=== PATIENT | female | born 1985 | race African-American/Black ===

== ENCOUNTER 2017-09-09 15:13 | Observation (INO) | payer MEDICAID, SELFPAY ==
[2017-09-09] VITALS (11 sets, daily range): BP systolic 152–236; BP diastolic 109–166; PULSE 71–105; RESP 12–27; TEMP 36.1–37; O2SAT 96–100; BMI 37.3; BMI 37.4; BMI 37.7
--- NOTE | 2017-09-09 15:25 | EKG12_ITS ---
Test Reason : N/V Blood Pressure : / mmHG Vent. Rate : 104 BPM Atrial Rate : 104 BPM P-R Int : 158 ms QRS Dur : 104 ms QT Int : 372 ms P-R-T Axes : 056 -60 080 degrees QTc Int : 489 ms Sinus tachycardia Left axis deviation Abnormal ECG Confirmed by THOMAS DILLARD, NAILA ([id number]), supervising film or videotape editor JASWINDER VINCENT ([id number]) on 09/11/2017 1:10:51 PM Referred By: LINDY Confirmed By:NAILA GUZMAN MD
--- NOTE | 2017-09-09 15:30 | RAD_ITS ---
STUDY: X-RAY CHEST REASON FOR EXAM: Female, 32 years old. 3 day history of nausea and vomiting and shortness of breath. TECHNIQUE: Single AP portable view of the chest. COMPARISON: Comparison is made with prior study dated May 18, 2015. FINDINGS: EKG electrodes are seen. Elevation of the right hemidiaphragm. Scattered calcified granulomas. There is no demonstrated pleural abnormality. There is moderate cardiac enlargement. Normal mediastinum and epifanio. Normal visualized pulmonary arteries. Normal visualized aortic arch and descending thoracic aorta. Normal visualized thoracic spine. Normal visualized ribs, clavicles, and shoulders. There is no demonstrated abnormality of the visualized soft tissue structures of the upper abdomen. RAD/Chest 1 View (Portable) IMPRESSION: Moderate cardiomegaly. Electronically Signed: Gerald Yin MD at 15:47 EDT Tel [phone], Service support ,
--- NOTE | 2017-09-09 15:31 | ED.DCSUM_ITS ---
- ER Visit Summary Date of Service: 09/09/17 Chief Complaint: Nausea, vomiting, shortness of breath History of Present Illness: The patient is a 32 F who reports nausea, vomiting, shortness of breath for the past 3 days. She states she had diarrhea on the first day of the illness only. She continues to have the nausea and vomiting. She is not sure if she may have gotten food poisoning. She denies pain. She does have a history of hypertension and diabetes and states she has not been checking her blood sugars. She has been able to keep her medication down. She states her blood pressure is poorly controlled on a regular basis. She states her systolic blood pressure only once 200 or higher. Physical Examination: Vital signs in triage include a blood pressure of 236/166 , temperature 97, heart rate 92, respiratory rate 16, pulse ox 99% on room air. Patient sitting upright in bed no acute distress. She is alert and talkative. Head and neck examination unremarkable. Heart is regular rate and rhythm. Lung sounds are clear but she does appear tachypneic. Abdomen is soft nontender. Hypoactive bowel sounds are noted. Neuro exam reveals no focal deficits. Test Results: EKG is sinus at 104 with no sign of acute ischemia. Portable chest x-ray shows moderate cardiomegaly. CBC was a white count 13.1 with unremarkable differential. Hemoglobin is 11.8. Chemistry studies reveal glucose of 343 and a sodium of 132. Her creatinine is 1.12. LFTs and lipase normal. Patency test is negative. Serum acetone is negative. Urinalysis shows 500 protein 1000 and glucose. She does not have ketones in her urine. Emergency Department Course and Treatment: Patient was given Zofran and gentle IV fluids. Repeat blood pressure is 218/155 with a heart rate of 100. She is given 10 mg of IV labetalol and repeat blood pressure is currently 199/142 with a heart rate of 83. She will be admitted for further treatment and evaluation. Treatment Plan: [] Disposition: Admit Impression: Hypertensive urgency This note was generated with [employer] dictation software. It may contain incorrect words, spelling, and punctuation that were not noted in review of the chart prior to signing ED Disposition - Plan for ED Patient: Chief Complaint: Nausea/Vomiting
--- NOTE | 2017-09-09 15:32 | NURSING ---
NO OLD EKGS
[2017-09-09 15:45] LABS: Bedside Glucose 374 mg/dL (70-110)
[2017-09-09] MEDS: Ondansetron 4 MG/2 ML Vial IV (15:50)
[2017-09-09] MEDS: 0.9% Normal Saline 1,000 ML 150 ML IV (15:50)
[2017-09-09 15:54] LABS: Mucous, Urine 0 SEEN /hpf (<or=2+); Red Blood Cells-Urine 0 SEEN /hpf (0-5)
[2017-09-09 16:11] LABS: Absolute Lymphocyte Count 2.83 X10^3/ul (0.83-4.51); Absolute Neutrophil Count 9.1 X10^3/uL (2.0-7.7); Basophil# 0.03 X10^3/uL; Basophil% 0.2 % (0-1); Eosinophil# 0.04 X10^3/uL; Eosinophils% 0.3 % (0-5); Hemoglobin 11.8 g/dl (12.0-15.0); Lymphocyte # 2.83 X10^3/ul (4.0); Lymphocyte % 21.6 % (19-41); Mean Corp Hgb Conc 32.8 g/gl (32-36); Mean Corpuscular Hgb 26.3 pg (27.0-32.0); Mean Corpuscular Volume 80.4 fL (81-99); Monocyte# 1.03 X10^3/uL; Monocyte% 7.9 % (0-10); Neutrophil % 69.6 % (47-70); Platelet Count 309 K/mm3 (150-450); RBC Distribution Width CV 15.5 % (11.6-14.6); RBC Distribution Width SD 44.6 fl (35.1-43.9); Red Blood Count 4.48 M/mm3 (4.2-5.4); White Blood Count 13.1 K/mm3 (4.4-11.0)
[2017-09-09 16:15] LABS: POSITIVE COUNT NO; POSITIVE DIFFERENTIAL NO; POSITIVE MORPHOLOGY NO
[2017-09-09 16:23] LABS: AST(SGOT) 24 U/L (15-37); Alanine Aminotransfer ALT/SGPT 43 U/L (13-56); Albumin, Serum 2.8 g/dL (3.2-5.0); Alkaline Phosphatase 96 U/L (45-117); Anion Gap 10 (5-15); BUN 18 mg/dL (7-18); BUN/Creat Ratio 16.1 RATIO (10-20); Bilirubin, Direct 0.21 mg/dL (0.00-0.30); Calcium,Total 8.3 mg/dL (8.5-10.1); Chloride 100 mmol/L (98-107); Creatinine, Serum 1.12 mg/dL (0.55-1.02); EST Glomerular Filtration Rate 60 mL/min (>60); Est Glom Filt Rate - Afr Amer 73 mL/min (>60); Estimated Creatinine Clearance 62.27 ml/min; Globulin 4.1 g/dL (2.2-4.2); Glucose 343 mg/dL (74-106); Lipase 103 U/L (73-393); Potassium 4.5 mmol/L (3.5-5.1); Protein, Total 6.9 g/dL (6.4-8.2); Sodium Level 132 mmol/L (136-145)
[2017-09-09 16:34] LABS: Pregnancy, Serum, hCG Quali. NEGATIVE Negative (0-9 Nonpreg)
[2017-09-09 16:51] LABS: Color, Urine Yellow (Yellow); Glucose, Dipstick 1000 mg/dl (Normal); Ketone-Dipstick Negative (Negative); Leukocyte Esterase-Dipstick Negative /ul (Negative); Nitrite-Dipstick Negative (Negative); Occult Blood-Urine 10 /ul (Negative); Protein-Dipstick 500 mg/dl (Negative); Urine Bilirubin Dipstick Negative (Negative); Urine Clarity Clear (Clear); Urine Urobilinogen Normal (Normal)
[2017-09-09 17:29] LABS: Fine Granular Cast- Urine 0-5 SEEN /lpf (0-5); Hyaline Cast 5-10 SEEN /lpf (0-5)
[2017-09-09 17:30] LABS: Bacteria 1+ /hpf (None Seen); Squamous Epithelial Cells - UA 5-10 SEEN /hpf (5-10); White Blood Cells 0-5 SEEN /hpf (0-5)
[2017-09-09 17:36] LABS: Bedside Glucose 272 mg/dL (70-110)
--- NOTE | 2017-09-09 17:59 | NURSING ---
DR QUINTANILLA IN ER
--- NOTE | 2017-09-09 18:01 | NURSING ---
PCU OBS UNCONTROLLED HYPERTENSION DWIGHT
--- NOTE | 2017-09-09 18:11 | NURSING ---
Ryan notified patient may transfer to PCU.
[2017-09-09] MEDS: Insulin Lispro 100 UNIT/ML INSULN.PEN SC ×2 (18:54→21:12)
[2017-09-09 18:56] LABS: Bedside Glucose 296 mg/dL (70-110)
[2017-09-09] MEDS: cloNIDine HCl 0.2 MG Tablet PO (18:56)
[2017-09-09] MEDS: Lisinopril 20 MG Tablet PO (18:56)
[2017-09-09] MEDS: Furosemide 40 MG Tablet PO (18:56)
--- NOTE | 2017-09-09 20:48 | PCM.HP.STD ---
Problem List (1) Nausea and vomiting Status: Acute Qualifiers: Vomiting Intractability: unspecified (2) Shortness of breath Status: Acute History of Present Illness Date of Admission: 09/09/17 Chief Complaint: Shortness of breath, nausea and vomiting The patient is a 32 year old F seen in the emergency room at [facility] with chief complaint of nausea and vomiting and shortness of breath ?3 days. Patient has a history of hypertension and type 2 diabetes, she told this examiner that she has not been taking her diabetic medications as directed, she also does not have a family physician and was given a prescription for blood pressure medications and diabetic medications from [facility] emergency room approximately a month ago. Patient denies any chest pains, she denies any sputum production, she denies any fever, or chills. Evaluation in the ER revealed her blood pressure to be highly elevated at 236/166, labs were remarkable for a creatinine of 1.12, glucose of 343, and white blood cell count at 13.1. Patient's pulse ox was 99% on room air, patient's chest x-ray showed cardiomegaly. Patient was given labetalol in the emergency room with some decrease in her blood pressure, hospitalist service was called for admission. Patient will be admitted for hypertensive urgency, due to her cardiomegaly on her chest x-ray, I will have an echocardiogram performed tomorrow. I do not feel the patient is compliant with her medications. She told this examiner that she has had a history of preeclampsia with her first but no history of it with her second . 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 SLEEVE SEWER history Lives: Spouse/ Significant Other Smoking Status: Former smoker Tobacco Use: Cigarettes Alcohol: Occasional Drugs: None - *Family History Maternal History Items: Diabetes, Hypertension Paternal History Items: Diabetes, Hypertension Review of Systems Constitutional: Denies: Anorexia, Chills, Fever, Night Sweats, Malaise, Weakness, Weight Change, Fatigue Eyes: Denies: Blurred vision, Cataracts, Conjunctivae Inflammation, Double vision, Drainage HEENT: Denies: Difficulty Swallowing, Dysphasia, Ear Pain, Eye Pain, Head Aches, Hearing Changes, Nasal bleeding, Nasal Congestion, Post Nasal Drip Cardiovascular: Denies: Chest Pain, Claudication, Chest Pressure, Chest Tightness, Edema, Heaviness, Orthopnea, Palpitations, Paroxysmal Noc. Dyspnea, Syncope Respiratory: Reports: Shortness of Breath, Shortness of breath upon exertion. Denies: Cough, Hemoptysis, Pleuritic Pain, Shortness of breath at rest, Sputum production, Wheezing Gastrointestinal: Denies: Abdominal Pain, Constipation, Diarrhea, Hematemesis, Hematochezia, Nausea, Melena, Vomiting Genitourinary: Denies: Dysuria, Frequency, Hematuria, Hesitancy, Urgency Gynecological: Denies: Breast symptoms Musculoskeletal: Denies: Foot Pain, Hand Pain, Joint Pain, Joint stiffness, Joint swelling, Joint Tenderness, Leg Pain Skin: Denies: Dryness, Jaundice, Pruritis, Rash Neurological: Denies: Blurred vision, Double vision, Slurred speech, Difficulty swallowing, Focal weakness, Headaches, Incoordination, Numbness, Tingling Psychiatric: Denies: Anxiety, Depression, Homicidal Ideations, Suicidal Ideations Endocrine: Denies: Change in Body Habitus, Heat/ Cold Intolerance, Polydipsia, Polyuria Hematologic/ Lymphatic: Denies: Adenopathy, Anemia, Easy Bruising, Easy Bleeding, Petechiae, Purpura VTE Information - Inpt Only VTE Present on Admission: No VTE Mechan Device Prophylaxis: None VTE Pharm Prophylaxis ordered?: No Reason prophylaxis not ordered:: Procedure Not Indicated - low risk for VTE Patient Problems: Active and Suspected Problems Nausea and vomiting (Acute) Shortness of breath (Acute) - Physical Exam General: Alert, Oriented x3, Cooperative, No apparent distress, Well developed, Well nourished HEENT: Atraumatic, PERRLA, EOMI, Normocephalic Oral: Moist Mucosa Neck: Supple, No JVD, Negative Carotid Bruits, No Nuchal Rigidity, Trachea Midline, Thyroid Normal Size and Texture Lungs: Clear to auscultation, Normal air movement, No rhonchi, No wheeze, No rales Cardiovascular: Regular rate, Regular Rhythm, Normal S1, Normal S2, No murmurs, No Ectopic Activity, PMI Normal, No rub noted, No Gallop Abdomen: Bowel Sounds Present, Soft, Non Tender, Non-Distended, No hernias noted Extremities: No clubbing, No cyanosis, No edema, Capillary Refill Less than 3 Seconds Skin: No rashes, No breakdown Musculoskeletal: No Tenderness to Palpation of Joints or Extremities Neurological: Cranial nerves II-XII grossly intact, Neuro grossly intact, Muscle tone normal, Sensory exam intact to light touch and pain Psych/Mental Status: Normal Affect, Appropriate, Alert and oriented to time, place, person, mood and affect Vital Signs Temp Pulse Resp BP Pulse Ox 98.6 F 86 18 204/143 H 100 09/09/17 18:30 09/09/17 19:47 09/09/17 18:30 09/09/17 18:30 09/09/17 18:30 Oxygen Delivery Method Room Air Weight: 99.6 kg Body Mass Index (BMI) 37.7 POC Glucose 09/09/17 18:47 POC Glucose 296 H Assessment/Plan All Active Problems Nausea and vomiting (Acute) Shortness of breath (Acute) #1 hypertensive urgency-patient will be placed and observation on PCU, she will have an echocardiogram performed tomorrow, she will be placed on lisinopril, hydrochlorothiazide, and carvedilol for her blood pressure. In addition volodymyr, I have written for Catapres 0.2 mg ?1 and Lasix 40 mg IV ?1. Labs will be repeated tomorrow #2 type 2 diabetes-patient will be placed on sliding scale insulin, patient told me that she was not taking her diabetic medication as an outpatient and that she was not following her diet, nutritional services will need to see the patient tomorrow, she will need follow-up with a physician when she is released from the hospital #3 noncompliance with medical regimen #4 dyspnea-etiology unclear at this point, patient will have an echocardiogram performed tomorrow, patient's pulse ox is 99% on room air. # 5 nausea and vomiting-probably secondary to gastroenteritis, CBC will be repeated tomorrow, I do not feel the patient needs fluids at this time Code Visit OBSV E&M: [id number] Initial observation care L3
--- NOTE | 2017-09-09 21:00 | HP.PCM_ITS ---
Problem List (1) Nausea and vomiting Status: Acute Qualifiers: Vomiting Intractability: unspecified (2) Shortness of breath Status: Acute History of Present Illness Date of Admission: 09/09/17 Chief Complaint: Shortness of breath, nausea and vomiting The patient is a 32 year old F seen in the emergency room at [facility] with chief complaint of nausea and vomiting and shortness of breath ?3 days. Patient has a history of hypertension and type 2 diabetes, she told this examiner that she has not been taking her diabetic medications as directed, she also does not have a family physician and was given a prescription for blood pressure medications and diabetic medications from [facility] emergency room approximately a month ago. Patient denies any chest pains, she denies any sputum production, she denies any fever, or chills. Evaluation in the ER revealed her blood pressure to be highly elevated at 236/166, labs were remarkable for a creatinine of 1.12, glucose of 343, and white blood cell count at 13.1. Patient's pulse ox was 99% on room air, patient's chest x-ray showed cardiomegaly. Patient was given labetalol in the emergency room with some decrease in her blood pressure, hospitalist service was called for admission. Patient will be admitted for hypertensive urgency, due to her cardiomegaly on her chest x-ray, I will have an echocardiogram performed tomorrow. I do not feel the patient is compliant with her medications. She told this examiner that she has had a history of preeclampsia with her first but no history of it with her second . 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: No pertinent STATE EPIDEMIOLOGIST history Lives: Spouse/ Significant Other Smoking Status: Former smoker Tobacco Use: Cigarettes Alcohol: Occasional Drugs: None - *Family History Maternal History Items: Diabetes, Hypertension Paternal History Items: Diabetes, Hypertension Review of Systems Constitutional: Denies: Anorexia, Chills, Fever, Night Sweats, Malaise, Weakness , Weight Change, Fatigue Eyes: Denies: Blurred vision, Cataracts, Conjunctivae Inflammation, Double vision, Drainage HEENT: Denies: Difficulty Swallowing, Dysphasia, Ear Pain, Eye Pain, Head Aches , Hearing Changes, Nasal bleeding, Nasal Congestion, Post Nasal Drip Cardiovascular: Denies: Chest Pain, Claudication, Chest Pressure, Chest Tightness, Edema, Heaviness, Orthopnea, Palpitations, Paroxysmal Noc. Dyspnea, Syncope Respiratory: Reports: Shortness of Breath, Shortness of breath upon exertion. Denies: Cough, Hemoptysis, Pleuritic Pain, Shortness of breath at rest, Sputum production, Wheezing Gastrointestinal: Denies: Abdominal Pain, Constipation, Diarrhea, Hematemesis, Hematochezia, Nausea, Melena, Vomiting Genitourinary: Denies: Dysuria, Frequency, Hematuria, Hesitancy, Urgency Gynecological: Denies: Breast symptoms Musculoskeletal: Denies: Foot Pain, Hand Pain, Joint Pain, Joint stiffness, Joint swelling, Joint Tenderness, Leg Pain Skin: Denies: Dryness, Jaundice, Pruritis, Rash Neurological: Denies: Blurred vision, Double vision, Slurred speech, Difficulty swallowing, Focal weakness, Headaches, Incoordination, Numbness, Tingling Psychiatric: Denies: Anxiety, Depression, Homicidal Ideations, Suicidal Ideations Endocrine: Denies: Change in Body Habitus, Heat/ Cold Intolerance, Polydipsia, Polyuria Hematologic/ Lymphatic: Denies: Adenopathy, Anemia, Easy Bruising, Easy Bleeding , Petechiae, Purpura VTE Information - Inpt Only VTE Present on Admission: No VTE Mechan Device Prophylaxis: None VTE Pharm Prophylaxis ordered?: No Reason prophylaxis not ordered:: Procedure Not Indicated - low risk for VTE Patient Problems: Active and Suspected Problems Nausea and vomiting (Acute) Shortness of breath (Acute) - Physical Exam General: Alert, Oriented x3, Cooperative, No apparent distress, Well developed, Well nourished HEENT: Atraumatic, PERRLA, EOMI, Normocephalic Oral: Moist Mucosa Neck: Supple, No JVD, Negative Carotid Bruits, No Nuchal Rigidity, Trachea Midline, Thyroid Normal Size and Texture Lungs: Clear to auscultation, Normal air movement, No rhonchi, No wheeze, No rales Cardiovascular: Regular rate, Regular Rhythm, Normal S1, Normal S2, No murmurs, No Ectopic Activity, PMI Normal, No rub noted, No Gallop Abdomen: Bowel Sounds Present, Soft, Non Tender, Non-Distended, No hernias noted Extremities: No clubbing, No cyanosis, No edema, Capillary Refill Less than 3 Seconds Skin: No rashes, No breakdown Musculoskeletal: No Tenderness to Palpation of Joints or Extremities Neurological: Cranial nerves II-XII grossly intact, Neuro grossly intact, Muscle tone normal, Sensory exam intact to light touch and pain Psych/Mental Status: Normal Affect, Appropriate, Alert and oriented to time, place, person, mood and affect Vital Signs Temp Pulse Resp BP Pulse Ox 98.6 F 86 18 204/143 H 100 09/09/17 18:30 09/09/17 19:47 09/09/17 18:30 09/09/17 18:30 09/09/17 18:30 Oxygen Delivery Method Room Air Weight: 99.6 kg Body Mass Index (BMI) 37.7 POC Glucose 09/09/17 18:47 POC Glucose 296 H Assessment/Plan All Active Problems Nausea and vomiting (Acute) Shortness of breath (Acute) #1 hypertensive urgency-patient will be placed and observation on PCU, she will have an echocardiogram performed tomorrow, she will be placed on lisinopril, hydrochlorothiazide, and carvedilol for her blood pressure. In addition volodymyr , I have written for Catapres 0.2 mg ?1 and Lasix 40 mg IV ?1. Labs will be repeated tomorrow #2 type 2 diabetes-patient will be placed on sliding scale insulin, patient told me that she was not taking her diabetic medication as an outpatient and that she was not following her diet, nutritional services will need to see the patient tomorrow, she will need follow-up with a physician when she is released from the hospital #3 noncompliance with medical regimen #4 dyspnea-etiology unclear at this point, patient will have an echocardiogram performed tomorrow, patient's pulse ox is 99% on room air. # 5 nausea and vomiting-probably secondary to gastroenteritis, CBC will be repeated tomorrow, I do not feel the patient needs fluids at this time Code Visit OBSV E&M: [id number] Initial observation care L3
[2017-09-09] MEDS: Carvedilol 12.5 MG Tablet PO (21:07)
[2017-09-09 22:40] LABS: Bedside Glucose 334 mg/dL (70-110)
[2017-09-10] VITALS (15 sets, daily range): BP systolic 162–192; BP diastolic 112–132; PULSE 69–77; RESP 16–20; TEMP 36.7–37.1; O2SAT 100
--- NOTE | 2017-09-10 05:55 | ECHOCS_ITS ---
Reason For Study: HTN Procedure This was a 2D Doppler, Color Flow transthoracic echocardiogram. Exam performed portable in patient room. Left Ventricle Normal LV size. Moderate concentric left ventricular hypertrophy. The estimated ejection fraction is 20 %. Transmitral diastolic flow velocities suggest severe (stage 3) diastolic dysfunction. There is severe global hypokinesis of the left ventricle. Right Ventricle Normal RV size. Normal systolic function. Atria Normal left atrium. Normal right atrium. Mitral Valve Bileaflet diffuse mitral valve thickening. Mild (1+) eccentric mitral valve insufficiency. Tricuspid Valve Normal tricuspid valve. Mild (1+) tricuspid valve insufficiency. Pulmonary artery systolic pressure is 35 mmHg. Aortic Valve Normal aortic valve. Trisinus/trileaflet aortic valve. Pulmonic Valve Normal pulmonic valve. Great Vessels Normal aortic root. The pulmonary artery is normal size. Normal inferior vena cava. Pericardium/Pleural No pericardial effusion. Medication Diluted definity 3ml given slow IV push to enhance endocardial definition. MMode/2D Measurements & Calculations LVIDd: 4.7 cm IVSd: 1.3 cm Ao root diam: 2.6 cm LVIDs: 4.0 cm LVPWd: 1.5 cm LA dimension: 3.7 cm RVDd: 3.1 cm FS: 14.1 % LAV(MOD-bp): 71.4 ml LVAd ap4: 38.4 cm2 SV(MOD-sp4): 27.3 ml LAV(MOD-bp) Indexed: 35.1 ml/m2 EDV(MOD-sp4): 143.1 ml LAV(MOD-sp2): 69.9 ml EDV(sp4-el): 147.9 ml LAV(MOD-sp4): 68.5 ml LVAs ap4: 33.2 cm2 ESV(MOD-sp4): 115.8 ml ESV(sp4-el): 116.3 ml EF(MOD-sp4): 19.1 % EF(sp4-el): 21.4 % SV(sp4-el): 31.6 ml LA A4 area: 21.9 cm2 RA A4 area: 16.8 cm2 Time Measurements MV dec time: 0.16 sec Doppler Measurements & Calculations MV E max warren: 129.2 cm/sec Lat Peak E' Warren: 5.5 cm/sec Med Peak E' Warren: 4.3 cm/sec MV A max warren: 59.7 cm/sec E/E' lat: 23.5 E/E' med: 30.3 MV E/A: 2.2 Ao V2 max: 115.8 cm/sec LV V1 max: 69.3 cm/sec PA V2 max: 65.7 cm/sec Ao max P.4 mmHg LV V1 max P.9 mmHg TR max warren: 276.8 cm/sec TR max P.7 mmHg Interpretation Summary Normal LV size. Moderate concentric left ventricular hypertrophy. The estimated ejection fraction is 20 %. Transmitral diastolic flow velocities suggest severe (stage 3) diastolic dysfunction Mild (1+) tricuspid valve insufficiency. Contrast injection was performed. Ordering Physician: Justin Brooke Performed By: Sparkle Guadalupe RDCS
--- NOTE | 2017-09-10 06:24 | NURSING ---
Pt. resting in bed, talked to pt. about refusing her lab draw and how important it was for doctor to have information. Still refusing. Stated , They can come later.
[2017-09-10 07:15] LABS: Bedside Glucose 191 mg/dL (70-110)
[2017-09-10] MEDS: Lisinopril 40 MG Tablet PO (09:06)
[2017-09-10] MEDS: Carvedilol 12.5 MG Tablet PO (09:06)
[2017-09-10] MEDS: hydroCHLOROthiazide 25 MG Tablet PO ×2 (09:06→12:15)
[2017-09-10] MEDS: Glucerna Shake 120 ML LIQUID PO (09:06)
[2017-09-10] MEDS: Insulin Lispro 100 UNIT/ML INSULN.PEN SC ×4 (09:07→21:08)
[2017-09-10 09:43] LABS: Hemoglobin A1c 9.5 % (4.2-6.3)
--- NOTE | 2017-09-10 11:19 | DCINST_ITS ---
- Discharge Diagnoses Current Active Problems: Current Active and Chronic Problems Nausea and vomiting (Acute) Shortness of breath (Acute) You will use the following diet at home:: Calorie/Carbohydrate Controlled ( specify 1200, 1400, etc) Discharge Activity: Return to Normal Activity Call your doctor if you observe: Shortness of breath, Dizziness, Fainting spells , Chest pain Allergies/Adverse Reactions: Allergies No Known Allergies Allergy (Verified 09/09/17 15:18) Medications to take at Discharge Carvedilol [Coreg (Beta Shant)] 12.5 mg PO BID #60 tab 09/10/17 Glyburide 5 mg PO DAILY #30 tab 09/10/17 Hydrochlorothiazide [Hctz] 25 mg PO DAILY #30 tab 09/10/17 Lisinopril [Zestril] 40 mg PO DAILY #30 tab 09/10/17 Metformin HCl 500 mg PO BID #60 tab 09/10/17 The following prescriptions were given: Glyburide 5 mg PO DAILY #30 tab Hydrochlorothiazide [Hctz] 25 mg PO DAILY #30 tab Lisinopril [Zestril] 40 mg PO DAILY #30 tab Carvedilol [Coreg (Beta Shant)] 12.5 mg PO BID #60 tab Metformin HCl 500 mg PO BID #60 tab Primary Care Physician: Selena Vargas MD [STAFF PHYSICIAN] - Please follow up with your Primary Care Physician in: 3-5 Days Test Results: Test results from this visit will be discussed in further detail at your follow- up appointment, if applicable. Proposed Discharge Date: 09/10/17
--- NOTE | 2017-09-10 11:32 | DS.PCM_ITS ---
<Jenifer Parmar - Last Filed: 09/10/17 11:33> Discharge Date and Diagnosis Date of Admission: 09/09/17 Date of Discharge: 09/10/17 - Primary Discharge Diagnosis Active and Suspected Problems 1. Hypertensive urgency 2. Type 2 diabetes mellitus 3. Nausea, vomiting-suspected gastroenteritis. Resolved. 4. Noncompliance with medical regimen - Secondary Discharge Diagnosis Type 2 diabetes mellitus Hypertension Obesity Hospital Course and Treatment Imaging Results: Diagnostic Data Chest X-Ray 09/09/17 15:30 IMPRESSION: Moderate cardiomegaly. Electronically Signed: Gerald Yin MD at 15:47 EDT Tel [phone], Service support , Operations: None Procedures: 2-D Echocardiogram Summary of Care Provided: The patient is a 32 year old F admitted 09/09/2017 due to shortness of breath, nausea, vomiting. She has a past medical history of hypertension and type 2 diabetes. She is noncompliant with her medication regimen. Chest x-ray showed cardiomegaly. Patient was noted to have hypertensive urgency on admission. Blood pressure improved. Patient will be discharged on lisinopril 40 mg daily. Hydrochlorothiazide 25 mg daily and carvedilol 12.5 mg twice daily. She will need further close outpatient follow-up with primary care physician for further blood pressure monitoring. Patient previously on glyburide 2.5 mg which she states she has not been taking. Hemoglobin A1c 9.5%. Glyburide increased to 5 mg daily. Patient will be discharged on metformin as well 500 mg twice daily. Patient strongly encouraged to closely follow-up with primary care physician for further diabetes management. Echocardiogram completed and will be reviewed prior to discharge. General: Alert, Oriented x3, Cooperative, No apparent distress HEENT: Atraumatic, PERRLA, EOMI, Normocephalic Oral: Moist Mucosa Neck: Supple, No JVD, Negative Carotid Bruits Lungs: Clear to auscultation, Normal air movement Cardiovascular: Regular rate, Regular Rhythm, Normal S1, Normal S2, No murmurs, No Ectopic Activity, PMI Normal, No rub noted, No Gallop Abdomen: Bowel Sounds Present, Soft, Non Tender, Non-Distended Extremities: No clubbing, No cyanosis, No edema Skin: No rashes, No breakdown Musculoskeletal: No Tenderness to Palpation of Joints or Extremities Neurological: Cranial nerves II-XII grossly intact, Neuro grossly intact Psych/Mental Status: Normal Affect, Appropriate Patient seen exam prior to discharge. Physical assessment as noted above. Patient stable for discharge home with the follow-up recommendations as noted above. This patient was seen by KARAN Singh under the supervision of Dr. Bazzi. Discharge Diet: 1800 Calorie Control Diet, Carb Control Diet Discharge Activity: Return to Normal Activity Call your doctor if you observe: Shortness of breath, Dizziness, Fainting spells , Chest pain Home Medications: Medications to take at Discharge Carvedilol [Coreg (Beta Shant)] 12.5 mg PO BID #60 tab 09/10/17 Glyburide 5 mg PO DAILY #30 tab 09/10/17 Hydrochlorothiazide [Hctz] 25 mg PO DAILY #30 tab 09/10/17 Lisinopril [Zestril] 40 mg PO DAILY #30 tab 09/10/17 Metformin HCl 500 mg PO BID #60 tab 09/10/17 Following Prescrptions Were Given to Patient: Glyburide 5 mg PO DAILY #30 tab Hydrochlorothiazide [Hctz] 25 mg PO DAILY #30 tab Lisinopril [Zestril] 40 mg PO DAILY #30 tab Carvedilol [Coreg (Beta Shant)] 12.5 mg PO BID #60 tab Metformin HCl 500 mg PO BID #60 tab Primary Care Physician: Selena Vargas MD [STAFF PHYSICIAN] - Please follow up with your Primary Care Physician in: 3-5 Days Disposition: Home Minutes spent on discharge:: 35 Patient Condition:: Stable Medical Necessity - Tobacco Use Smoking Status: Former smoker Tobacco Use: Cigarettes Meaningful Use Info Meaningful Use Diagnoses (Choose all that apply): None applicable <Talha Bazzi - Last Filed: 09/10/17 14:10> Hospital Course and Treatment Imaging Results: 09/10/17 05:55 Echo Complete [ECHO] AM (NON MEDS) Summary of Care Provided: This patient was seen in conjunction with KARAN Singh. I have independently interviewed and examined the patient and reviewed pertinent historical, laboratory, and other data. Please refer to KARAN Singh note for details of this patient's presentation, findings, and recommendations. I have reviewed Jenifer Parmar JESSICA-C note and concur with documented findings. In brief, patient is a 32 year old lady admitted with nausea, shortness of breath and vomiting patient was found to have markedly elevated blood pressure on admission Assessment: 1. Acute hypertensive crisis 2. Uncontrolled diabetes mellitus type 2 A. Obesity with BMI of 37 Hospital course as elicited above Code Visit OBSV E&M: 89895 Observation care discharge
[2017-09-10 12:51] LABS: Bedside Glucose 266 mg/dL (70-110)
--- NOTE | 2017-09-10 14:09 | CASEMGMT ---
Per Jazmyne VAIL, pt requesting scripts/assist with getting glucometer and testing supplies and blood pressure cuff. Scripts obtained and given to pt at this time. Pt voices no further questions/concerns/needs at this time. Keven VAIL CM
--- NOTE | 2017-09-10 15:39 | CASEMGMT ---
SW gave patient a PCP list. Vijaya DENNY MSW
[2017-09-10] MEDS: amLODIPine 10 MG Tablet PO (16:42)
[2017-09-10 16:55] LABS: Bedside Glucose 202 mg/dL (70-110)
--- NOTE | 2017-09-10 17:49 | PCM.PROGNOTE ---
<Jenifer Parmar - Last Filed: 09/10/17 17:58> Subjective: Patient seen and examined. Denies chest pain, shortness of breath. No current complaints at this time. - Physical Exam General: Alert, Oriented x3, Cooperative, No apparent distress HEENT: Atraumatic, PERRLA, EOMI, Normocephalic Neck: Supple, No JVD, Negative Carotid Bruits Lungs: Clear to auscultation, Normal air movement Cardiovascular: Regular rate, Regular Rhythm, Normal S1, Normal S2, No murmurs Abdomen: Bowel Sounds Present, Soft, Non Tender, Non-Distended Extremities: No clubbing, No cyanosis, No edema, Capillary Refill Less than 3 Seconds Skin: No rashes, No breakdown Musculoskeletal: No Tenderness to Palpation of Joints or Extremities Neurological: Cranial nerves II-XII grossly intact, Neuro grossly intact Psych/Mental Status: Normal Affect, Appropriate Vital Signs Temp Pulse Resp BP Pulse Ox 98.7 F 77 16 192/131 H 100 09/10/17 15:00 09/10/17 17:36 09/10/17 15:00 09/10/17 17:36 09/10/17 15:00 Oxygen Delivery Method Room Air Weight: 219 lb 9.286 oz Body Mass Index (BMI) 37.7 Intake and Output for Last 24 Hours 09/08/17 09/09/17 09/10/17 23:59 23:59 23:59 Intake Total 200 / 200 50 / 50 Balance 200 / 200 50 / 50 POC Glucose 09/10/17 09/10/17 09/10/17 16:44 12:17 07:08 POC Glucose 202 H 266 H 191 H 09/09/17 09/09/17 21:11 18:47 POC Glucose 334 H 296 H Medical Necessity - Tobacco Use Smoking Status: Former smoker Tobacco Use: Cigarettes Assessment/Plan All Active Problems Nausea and vomiting (Acute) Shortness of breath (Acute) 1. Hypertensive urgency-blood pressure labile. Continue lisinopril 40 mg daily. Hydrochlorothiazide increased to 50 mg daily. Carvedilol increased to 25 mg twice daily. Continue amlodipine 10 mg daily. 2. Heart failure with reduced ejection fraction-echocardiogram with an EF of 20%, severe diastolic dysfunction, mild tricuspid valve insufficiency. Patient will follow up with cardiology as outpatient for further monitoring. [facility] with [place] EF of 40%. 3. Type 2 diabetes gelkaqnw-Ixli-[id number] before meals and at bedtime with sliding scale insulin. Discharge on metformin 500 mg twice daily and glyburide 5 mg daily. 4. Nausea, vomiting-suspected gastroenteritis. Resolved. 5. Noncompliance with medical regimen DVT prophylaxis-SCDs This patient was seen by KARAN Singh under the supervision of Dr. Bazzi. <Talha Bazzi - Last Filed: 09/11/17 12:25> - Physical Exam Vital Signs Temp Pulse Resp BP Pulse Ox 98.3 F 72 12 159/101 H 100 09/11/17 08:54 09/11/17 11:49 09/11/17 08:54 09/11/17 11:49 09/11/17 08:54 Oxygen Delivery Method Room Air Weight: 99.6 kg Body Mass Index (BMI) 37.7 Orthostatic Vital Signs Start: 09/11/17 11:48 Freq: q24h Status: Active Protocol: Activity Type Activity Date Activity User E-Sign Co-Sign Detail Recorded Client Recorded Date Recorded By Document 09/11/17 11:49 MLB [id number] 09/11/17 11:51 MLB 09/11/17 11:49 Orthostatic Vitals Standing -Blood Pressure (90/60-120/80) 157/101 H -Extremity Use Left Arm -Pulse Rate (60-100) 74 Sitting -Blood Pressure (90/60-120/80) 155/110 H -Extremity Use Left Arm -Pulse Rate (60-100) 74 Lying -Blood Pressure (90/60-120/80) 159/101 H -Extremity Use Left Arm -Pulse Rate (60-100) 72 Intake and Output for Last 24 Hours 09/09/17 09/10/17 09/11/17 23:59 23:59 23:59 Intake Total 200 / 200 50 / 50 280 / 280 Balance 200 / 200 50 / 50 280 / 280 Laboratory Tests Past 24 Hrs 09/10/17 19:40 Urine Opiates Screen NEGATIVE Urine Methadone Screen NEGATIVE Ur Barbiturates Screen NEGATIVE Ur Phencyclidine Scrn NEGATIVE Ur Amphetamines Screen NEGATIVE U Methamphetamin-MDMA NEGATIVE U Benzodiazepines Scrn NEGATIVE Urine Cocaine Screen NEGATIVE U Cannabinoids Screen NEGATIVE Ur Drug Screen Comment POC Glucose 09/11/17 09/11/17 09/10/17 11:54 06:54 21:06 POC Glucose 259 H 158 H 233 H 09/10/17 09/10/17 16:44 12:17 POC Glucose 202 H 266 H Assessment/Plan This patient was seen in conjunction with KARAN Singh. I have independently interviewed and examined the patient and reviewed pertinent historical, laboratory, and other data. Please refer to KARAN Singh note for details of this patient's presentation, findings, and recommendations. I have reviewed KARAN Singh note and concur with documented findings. In brief, patient is a 32 year old lady admitted with nausea, shortness of breath and vomiting patient was found to have markedly elevated blood pressure on admission Assessment: 1. Acute hypertensive crisis 2. Uncontrolled diabetes mellitus type 2 A. Obesity with BMI of 37 Code Visit OBSV E&M: 36040 Subsequent observation care L3
--- NOTE | 2017-09-10 17:58 | PN_ITS ---
<Jenifer Parmar - Last Filed: 09/10/17 17:58> Subjective: Patient seen and examined. Denies chest pain, shortness of breath. No current complaints at this time. - Physical Exam General: Alert, Oriented x3, Cooperative, No apparent distress HEENT: Atraumatic, PERRLA, EOMI, Normocephalic Neck: Supple, No JVD, Negative Carotid Bruits Lungs: Clear to auscultation, Normal air movement Cardiovascular: Regular rate, Regular Rhythm, Normal S1, Normal S2, No murmurs Abdomen: Bowel Sounds Present, Soft, Non Tender, Non-Distended Extremities: No clubbing, No cyanosis, No edema, Capillary Refill Less than 3 Seconds Skin: No rashes, No breakdown Musculoskeletal: No Tenderness to Palpation of Joints or Extremities Neurological: Cranial nerves II-XII grossly intact, Neuro grossly intact Psych/Mental Status: Normal Affect, Appropriate Vital Signs Temp Pulse Resp BP Pulse Ox 98.7 F 77 16 192/131 H 100 09/10/17 15:00 09/10/17 17:36 09/10/17 15:00 09/10/17 17:36 09/10/17 15:00 Oxygen Delivery Method Room Air Weight: 219 lb 9.286 oz Body Mass Index (BMI) 37.7 Intake and Output for Last 24 Hours 09/08/17 09/09/17 09/10/17 23:59 23:59 23:59 Intake Total 200 / 200 50 / 50 Balance 200 / 200 50 / 50 POC Glucose 09/10/17 09/10/17 09/10/17 16:44 12:17 07:08 POC Glucose 202 H 266 H 191 H 09/09/17 09/09/17 21:11 18:47 POC Glucose 334 H 296 H Medical Necessity - Tobacco Use Smoking Status: Former smoker Tobacco Use: Cigarettes Assessment/Plan All Active Problems Nausea and vomiting (Acute) Shortness of breath (Acute) 1. Hypertensive urgency-blood pressure labile. Continue lisinopril 40 mg daily. Hydrochlorothiazide increased to 50 mg daily. Carvedilol increased to 25 mg twice daily. Continue amlodipine 10 mg daily. 2. Heart failure with reduced ejection fraction-echocardiogram with an EF of 20 %, severe diastolic dysfunction, mild tricuspid valve insufficiency. Patient will follow up with cardiology as outpatient for further monitoring. [facility] [place] [facility] with an EF of 40%. 3. Type 2 diabetes bighjpat-Rmpp-Ifuox before meals and at bedtime with sliding scale insulin. Discharge on metformin 500 mg twice daily and glyburide 5 mg daily. 4. Nausea, vomiting-suspected gastroenteritis. Resolved. 5. Noncompliance with medical regimen DVT prophylaxis-SCDs This patient was seen by KARAN Singh under the supervision of Dr. Bazzi. <Talha Bazzi - Last Filed: 09/11/17 12:25> - Physical Exam Vital Signs Temp Pulse Resp BP Pulse Ox 98.3 F 72 12 159/101 H 100 09/11/17 08:54 09/11/17 11:49 09/11/17 08:54 09/11/17 11:49 09/11/17 08:54 Oxygen Delivery Method Room Air Weight: 99.6 kg Body Mass Index (BMI) 37.7 Orthostatic Vital Signs Start: 09/11/17 11:48 Freq: q24h Status: Active Protocol: Activity Type Activity Date Activity User E-Sign Co-Sign Detail Recorded Client Recorded Date Recorded By Document 09/11/17 11:49 MLB [id number] 09/11/17 11:51 MLB 09/11/17 11:49 Orthostatic Vitals Standing -Blood Pressure (90/60-120/80) 157/101 H -Extremity Use Left Arm -Pulse Rate (60-100) 74 Sitting -Blood Pressure (90/60-120/80) 155/110 H -Extremity Use Left Arm -Pulse Rate (60-100) 74 Lying -Blood Pressure (90/60-120/80) 159/101 H -Extremity Use Left Arm -Pulse Rate (60-100) 72 Intake and Output for Last 24 Hours 09/09/17 09/10/17 09/11/17 23:59 23:59 23:59 Intake Total 200 / 200 50 / 50 280 / 280 Balance 200 / 200 50 / 50 280 / 280 Laboratory Tests Past 24 Hrs 09/10/17 19:40 Urine Opiates Screen NEGATIVE Urine Methadone Screen NEGATIVE Ur Barbiturates Screen NEGATIVE Ur Phencyclidine Scrn NEGATIVE Ur Amphetamines Screen NEGATIVE U Methamphetamin-MDMA NEGATIVE U Benzodiazepines Scrn NEGATIVE Urine Cocaine Screen NEGATIVE U Cannabinoids Screen NEGATIVE Ur Drug Screen Comment POC Glucose 09/11/17 09/11/17 09/10/17 11:54 06:54 21:06 POC Glucose 259 H 158 H 233 H 09/10/17 09/10/17 16:44 12:17 POC Glucose 202 H 266 H Assessment/Plan This patient was seen in conjunction with KARAN Singh. I have independently interviewed and examined the patient and reviewed pertinent historical, laboratory, and other data. Please refer to KARAN Singh note for details of this patient's presentation, findings, and recommendations. I have reviewed KARAN Singh note and concur with documented findings. In brief, patient is a 32 year old lady admitted with nausea, shortness of breath and vomiting patient was found to have markedly elevated blood pressure on admission Assessment: 1. Acute hypertensive crisis 2. Uncontrolled diabetes mellitus type 2 A. Obesity with BMI of 37 Code Visit OBSV E&M: 42342 Subsequent observation care L3
[2017-09-10] MEDS: Metoprolol Tartrate 5 MG/5 ML Vial IV (19:18)
[2017-09-10 20:05] LABS: Amphetamine Urine VISTA NEGATIVE (<1000 ng/mL); Barbiturate Urine VISTA NEGATIVE (< 200 ng/mL); Benzodiazepine Urine VISTA NEGATIVE (< 200 ng/mL); Cocaine Urine VISTA NEGATIVE (< 300 ng/mL); Ecstacy Urine VISTA NEGATIVE (< 500 ng/mL); Methadone Urine VISTA NEGATIVE (< 300 ng/mL); PCP Urine VISTA NEGATIVE (< 25 ng/mL); THC Urine VISTA NEGATIVE (< 50 ng/mL); Vista UDS pH Range 6
[2017-09-10] MEDS: Carvedilol 25 MG Tablet PO (21:08)
[2017-09-10 22:15] LABS: Bedside Glucose 233 mg/dL (70-110)
[2017-09-11] VITALS (9 sets, daily range): BP systolic 150–165; BP diastolic 97–115; PULSE 65–74; RESP 12–16; TEMP 36.8–37; O2SAT 99–100
[2017-09-11] MEDS: 0.9% NaCl Peripheral Flush Adult/Peds IV ×2 (00:47→05:32)
[2017-09-11] MEDS: Enalaprilat 1.25 MG/ML Vial IV ×2 (00:48→05:32)
[2017-09-11] MEDS: Metoprolol Tartrate 5 MG/5 ML Vial IV ×2 (00:48→05:32)
[2017-09-11 07:00] LABS: Bedside Glucose 158 mg/dL (70-110)
[2017-09-11] MEDS: Insulin Lispro 100 UNIT/ML INSULN.PEN SC ×2 (08:59→12:00)
[2017-09-11] MEDS: amLODIPine 10 MG Tablet PO (09:00)
[2017-09-11] MEDS: Lisinopril 40 MG Tablet PO (09:00)
[2017-09-11] MEDS: Carvedilol 25 MG Tablet PO (09:00)
[2017-09-11] MEDS: hydroCHLOROthiazide 25 MG Tablet 50 MG PO (09:00)
--- NOTE | 2017-09-11 11:57 | CASEMGMT ---
This RN CM to room to offer [facility] for pt at this time and pt declines referral at this time. SStaten RN CM
[2017-09-11 12:06] LABS: Bedside Glucose 259 mg/dL (70-110)
== END 2017-09-11 14:30 | disposition home or self-care (01) ==
LOC: ED 17:26 → PCU 18:10
PROVIDERS: Nurse Practitioner Family; Admitting Provider Internal Medicine; Emergency Provider Emergency Medicine; Visit Provider Internal Medicine
DX: I16.0 Hypertensive urgency (principal); I10 Essential (primary) hypertension; R11.2 Nausea with vomiting, unspecified; Z91.19 Patient's noncompliance with other medical treatment and regimen; E66.9 Obesity, unspecified; Z68.37 Body mass index [BMI] 37.0-37.9, adult; Z71.3 Dietary counseling and surveillance; I51.7 Cardiomegaly; Z87.891 Personal history of nicotine dependence; E11.65 Type 2 diabetes mellitus with hyperglycemia; R06.02 Shortness of breath; Z79.899 Other long term (current) drug therapy; Z79.84 Long term (current) use of oral hypoglycemic drugs; I07.1 Rheumatic tricuspid insufficiency
CPT/HCPCS: 71045; 80048; 80076; 80307; 81001; 82009; 82962; 83036; 83690; 84703; 85025; 93005; 93306; 96361; 96374; 96375; 96376; 97802; 99218; 99285; 99406; J7030; Q9957; A4216; C8929; G0378; J2405

== ENCOUNTER 2020-11-21 15:06 | Emergency (ER) | payer MEDICAID, SELFPAY ==
[2020-11-21 15:08] VITALS: BP 222/140; PULSE 71; RESP 15; TEMP 35.8; O2SAT 100; BMI 31.9
--- NOTE | 2020-11-21 16:45 | EX.ED.DYSGE1 ---
HPI History of Present Illness Chief Complaint: Hypertension Informant: patient Narrative Narrative: 35-year-old female presented to the emergency department with hypertension and dyspnea. Patient states she has been out of her blood pressure medications for several weeks. She states that she did not have a doctor due to insurance reasons but now she has insurance. She states that she does not know who to see. Her recent prescriptions have been given by emergency departments not at this hospital. She notes that today she was short of breath with exertion at work. She denies headache or chest pain. Patient states that she does not want any blood work or anything done just prescriptions and a referral to a doctor. She also notes that she does not take anything for her diabetes because it makes her sick. [facility] Medical History (Updated 11/21/20 @ 16:[address] Jc Forrest DO) Diabetes Hypertension Home Medications glyburide 5 mg PO DAILY #30 tab 09/10/17 [Rx Last Taken Unknown] metformin 500 mg PO BID #60 tab 09/10/17 [Rx Last Taken Unknown] amlodipine 10 mg PO DAILY #10 tab 11/21/20 [Rx Last Taken Unknown] amlodipine 10 mg PO DAILY #10 tab 11/21/20 [Rx Last Taken Unknown] carvedilol 25 mg PO BID #20 tab 11/21/20 [Rx Last Taken Unknown] carvedilol 25 mg PO BID #20 tab 11/21/20 [Rx Last Taken Unknown] hydrochlorothiazide 50 mg PO DAILY #10 tab 11/21/20 [Rx Last Taken Unknown] hydrochlorothiazide 50 mg PO DAILY #10 tab 11/21/20 [Rx Last Taken Unknown] lisinopril 40 mg PO DAILY #10 tab 11/21/20 [Rx Last Taken Unknown] lisinopril 40 mg PO DAILY #10 tab 11/21/20 [Rx Last Taken Unknown] Allergy/AdvReac Type Severity Reaction Status Date / Time No Known Allergies Allergy Verified 11/21/20 15:10 Social History (Updated 11/21/20 @ 16:[address] Jc Forrest DO) Smoking Status: Former smoker substance use type: does not use ROS ROS ED Constitutional Constitutional ED: Denies chills or weight loss Eyes Eyes: Denies change in vision or diplopia ENT ENT ED: Denies ear pain, rhinorrhea or sore throat Cardiovascular Cardiovascular: Denies chest pain, orthopnea, palpitations or racing heartbeat Respiratory/Chest Respiratory/Chest: Reports dyspnea; Denies cough or orthopnea Gastrointestinal Gastrointestinal: Denies abdominal pain, diarrhea, nausea or vomiting Genitourinary Genitourinary ED: Denies dysuria, hematuria or urinary frequency Musculoskeletal Musculoskeletal: Denies arthralgias or myalgias Integumentary Denies abscess or rash Neurologic Neurologic: Denies headache(s) or weakness Psychiatric Psychiatric: Denies anxiety, depression, suicidal ideation or suicidal thoughts Endocrine Endocrinology: Denies polydipsia, polyphagia or polyuria Allergic/Immunologic Allergic/Immunologic ED: Denies mouth swelling, tongue swelling or urticaria EXAM Physical Exam Const Vital Signs: 11/21/20 15:08 Temperature 96.4 F L Temperature Source Temporal Pulse Rate 71 Respiratory Rate 15 Blood Pressure 222/140 H Blood Pressure Mean 167 Pulse Ox 100 Oxygen Delivery Method Room Air Positive well nourished, well developed and obese General Appearance ED: well developed Nutritional Appearance: obese HEENT Reports normocephalic, head/scalp atraumatic and moist mucous membranes Eyes PERRL and EOMs intact bilaterally Neck no lymphadenopathy, supple and no JVD Resp normal respiratory effort and clear to auscultation bilaterally Cardio regular rate, regular rhythm and no murmurs GI normal to inspection, nondistended, normoactive bowel sounds and non-tender Palpation: soft Back/Spine no CVA tenderness and normal ROM Extremity normal to inspection General Extremety ED: Negative for edema General Extremity: Negative for edema Neuro oriented x3 and CN's II-XII intact bilaterally Sensorium / Orientation: alert Motor Exam: strength 5/5 throughout Psych mental status grossly normal Mood & Affect: Negative for depressed or tearful Skin no rashes or lesions noted and no wounds MDM MDM MDM Narrative Medical decision making narrative: Patient appears to have the capacity to refuse care. I will write for her to have 10 days of medications refer her to primary care Discharge Plan Triage Chief Complaint: Hypertension ED Provider: Jc Forrest Dx/Rx/DC Orders Clinical Impression: Hypertensive urgency, Acute dyspnea Instructions: ED Hypertension, Established Prescriptions: New amlodipine 10 mg tablet 10 mg PO DAILY Qty: 10 RF: 0 carvedilol 25 mg tablet 25 mg PO BID Qty: 20 RF: 0 hydrochlorothiazide 50 mg tablet 50 mg PO DAILY Qty: 10 RF: 0 lisinopril 40 mg tablet 40 mg PO DAILY Qty: 10 RF: 0 Continued carvedilol 25 MG tablet 25 mg PO BID Qty: 20 RF: 0 amlodipine 10 MG tablet 10 mg PO DAILY Qty: 10 RF: 0 hydrochlorothiazide 25 MG tablet 50 mg PO DAILY Qty: 10 RF: 0 lisinopril 40 MG tablet 40 mg PO DAILY Qty: 10 RF: 0 No Action metformin 500 MG tablet 500 mg PO BID Qty: 60 RF: 0 glyburide 5 MG tablet 5 mg PO DAILY Qty: 30 RF: 0 Primary Care Provider: Care Physician,No Primary Referrals: Dangelo Michel MD [STAFF PHYSICIAN] - As soon as possible Care Physician,No Primary [Primary Care Provider] - Disposition Disposition: Home, Self Care Capacity Capacity Assessment Tool Can the patient make a choice & communicate that choice?: Yes Can the patient understand benefits, risks and alternatives?: Yes Can the patient make a logical, rational choice?: Yes Is the choice the patient makes consistent w/ their values?: Yes Is there an impending, emergent risk to the patient?: Yes Does the patient have an Advance Directive?: No Is there a Surrogate Available?: No i.e. HCPOA: No i.e. close relative (spouse, child, parent, sibling)?: No
--- NOTE | 2020-11-21 16:55 | ED.RN ---
PT REFUSES ANY FURTHER NURSING ASSESSMENTS, STATES I JUST NEED MY PRESCRIPTIONS, NOTHING ELSE. PT EXTENSIVELY COUNSELED ON NEED TO ESTABLISH PCP. AFTER MUCH DISCUSSION PT VOICES UNDERSTANDING. INFO ON LOCAL PCP GIVEN. PT SINGS OUT OF ED AMA, VOICES UNDERSTANDING OF RISKS IN DOING SO, UP TO AND INCLUDING .
== END 2020-11-21 17:01 | disposition left against medical advice (07) ==
LOC: ED 16:49
PROVIDERS: Emergency Provider Emergency Medicine
DX: I16.0 Hypertensive urgency (principal); R06.00 Dyspnea, unspecified; E66.9 Obesity, unspecified; E11.9 Type 2 diabetes mellitus without complications; I10 Essential (primary) hypertension; Z87.891 Personal history of nicotine dependence
CPT/HCPCS: 99282